=== PATIENT | female | born 2000 | race Native Hawaiian/Other Pacific Islander ===

== ENCOUNTER 2020-02-21 11:32 | Emergency (ER) | payer OTHER ==
[~2020-02-21] VITALS: Ht 165.1 cm; Wt 66.7 kg
[2020-02-21 12:21] LABS: PLATELET COUNT 191 K/uL (152-353)
[2020-02-21 12:28] LABS: POTASSIUM 3.8 mmol/L (3.6-5.2)
[2020-02-21 13:44] VITALS: BP 124/77; TEMP 97
== END 2020-02-21 13:51 | disposition home or self-care (01) ==
LOC: ED 11:32
PROVIDERS: Family Medicine
DX: S30.0XXA Contusion of lower back and pelvis, initial encounter (principal); W01.198A Fall on same level from slipping, tripping and stumbling with subsequent striking against other object, initial encounter; Y92.89 Other specified places as the place of occurrence of the external cause
CPT/HCPCS: 36415; 80053; 81000; 81025; 85027; 96372; 99283; J1885

== ENCOUNTER 2020-02-27 13:08 | Outpatient (CLI) | payer OTHER | END 2020-02-27 20:07 | disposition home or self-care (01) | LOC: US 13:08 | PROVIDERS: ATTEND Obstetrics & Gynecology | DX: O26.851 Spotting complicating pregnancy, first trimester (principal) ==

== ENCOUNTER 2021-07-06 10:00 | Outpatient (CLI) | payer OTHER | END 2021-07-06 19:16 | disposition home or self-care (01) | LOC: US 10:00 | PROVIDERS: ATTEND Obstetrics & Gynecology | DX: E03.9 Hypothyroidism, unspecified (principal); E04.9 Nontoxic goiter, unspecified ==